=== PATIENT | male | born 1995 | race Caucasian/White ===

== ENCOUNTER 2017-02-21 18:39 | Emergency (ER) | payer OTHER ==
--- NOTE | 2017-02-21 18:42 | EDPHY ---
H & P HPI/ROS: HPI CHIEF COMPLAINT: Dysuria x 4 days. HISTORY OF PRESENT ILLNESS: This patient very pleasant 21-year-old male, otherwise healthy does have significant past medical history for seizure disorders, he presents emergency room with 4 days of dysuria. He states that 5 days ago he had anal intercourse unprotected with a female partner. The next day he developed dysuria. No drainage or discharge. No testicular pain. No fever. Denies vomiting nausea or back pain. Main complaint is dysuria x4 days. He denies STI exposure. Past Medical History: Denies significant medical history except for seizures Past Surgical History: No recent surgery Social History: Denies daily use of drugs alcohol tobacco products. Works for [employer]. Family History: Noncontributory. ROS REVIEW OF SYSTEMS: A comprehensive 10 point review of systems is otherwise negative aside from elements mentioned in the history of present illness. Exam Constitutional appears well nontoxic triage nursing summary reviewed, vital signs reviewed, awake/alert. Eyes normal conjunctivae and sclera, EOMI, PERRLA. HENT normal inspection, atraumatic, moist mucus membranes, no epistaxis, neck supple/ no meningismus, no raccoon eyes. Respiratory clear to auscultation bilaterally, normal breath sounds, no respiratory distress, no wheezing. Cardiovascular rate normal, regular rhythm, no murmur, no edema, distal pulses normal. Gastrointestinal soft, non-tender, no rebound, no guarding, normal bowel sounds, no distension, no pulsatile mass. Genitourinary no CVA tenderness. Musculoskeletal no midline vertebral tenderness, full range of motion, no calf swelling, no tenderness of extremities, no meningismus, good pulses, neurovascularly intact. Skin pink, warm, & dry, no rash, skin atraumatic. Neurologic awake, alert and oriented x 3, AAOx3, moves all 4 extremities equally, motor intact, sensory intact, CN II-XII intact, normal cerebellar, normal vision, normal speech. Psychiatric normal mood/affect. Heme/Lymph/Immune no lymphadenopathy. Differential Diagnosis: Includes but is not limited to in a particular order UTI, cystitis, STI, urethritis, pyelonephritis. Medical Decision Making: Plan for this patient check dirty catch, evaluate for urinary tract infection. Will obtain dirty sample for STI testing. Additionally will send for formal UA. If patient's UA indicates UTI will start on Keflex and peridium. Additionally I discussed impaired treatment of STI but the patient would like to wait for his test results. He thinks is unlikely he has an STI. Re-evaluation: 1951: UA has resulted and is clean. However given the patient's dysuria symptoms I will treat and send urine culture. Keflex prescription and pyridium. Additionally a dirty catch was sent for GC. Patient understands this is pending and will take 24-48 hours to result. He is to call in 48 hr to find out result. Additionally if it is positive we will call him he understands this. I had a lengthy discussion with this patient about his clean urinalysis but given his dysuria and etiology of his symptoms starting I will elect to treat him with antibiotics and peridium. He understands return emergency room if he has worsening symptoms questions or concerns. Source: Patient Constitutional: Initial Vital Signs Heart Rate 59 L 02/21/17 18:52 Respiratory Rate 16 02/21/17 18:52 Blood Pressure 124/65 H 02/21/17 18:52 O2 Sat (%) 95 02/21/17 18:52 O2 Delivery Mode Room Air Allergies/Adverse Reactions: No Known Allergies Allergy (Unverified 02/21/17 18:50) Home Medications: Medication Instructions Recorded Cephalexin [Keflex] 500 mg PO Q6H #28 cap 02/21/17 Keppra 02/21/17 Phenazopyridine HCl [Pyridium] 200 mg PO TID #15 tab 02/21/17 VIMPAT 02/21/17 Medical Decision Making - Data Points Laboratory Results: 02/21/17 02/21/17 19:00 19:00 Urine Color YELLOW Urine Appearance CLEAR Urine pH 6.0 (5.0-7.5) Ur Specific [place] <= 1.005 (1.002-1.030) Urine Protein NEGATIVE (NEGATIVE) Urine Ketones NEGATIVE (NEGATIVE) Urine Blood NEGATIVE (NEGATIVE) Urine Nitrate NEGATIVE (NEGATIVE) Urine Bilirubin NEGATIVE (NEGATIVE) Urine Urobilinogen 0.2 EU EU (0.2-1.0) Ur Leukocyte Esterase NEGATIVE (NEGATIVE) Urine Glucose NEGATIVE (NEGATIVE) N.gonorrhoeae RNA (TMA) Pending Departure - Departure Disposition: Home, Routine, Self-Care Clinical Impression: Urinary tract infection Qualifiers: Urinary tract infection type: acute cystitis Hematuria presence: with hematuria Qualified Code(s): N30.01 - Acute cystitis with hematuria Condition: Good Instructions: Urinary Tract Infection in Men (ED) Additional Instructions: 1. Make sure to drink lots of fluids stay well-hydrated. 2. Take antibiotics as prescribed. 3. Call in 48 hrs for test results. 4. Return to the emergency room if you have worsening symptoms this includes worsening pain, vomiting, fever, back pain or questions or concerns. Referrals: NONE *PRIMARY CARE P,. [Primary Care Provider] - As per Instructions Prescriptions: Cephalexin [Keflex] 500 mg PO Q6H #28 cap Phenazopyridine HCl [Pyridium] 200 mg PO TID #15 tab
[2017-02-21 18:55] VITALS: O2SAT 95
[2017-02-21 19:04] VITALS: TEMP 97.7
[2017-02-21 19:43] LABS: COLOR YELLOW; LEUKOCYTE ESTERASE,URINE NEGATIVE (NEGATIVE); NITRITE,URINE NEGATIVE (NEGATIVE)
[2017-02-21] MEDS ORDERED: CEPHALEXIN 500 MG CAP PO ONE (19:51)
[2017-02-21] MEDS ORDERED: PHENAZOPYRIDINE HCL 200 MG TAB PO ONE (19:51)
[2017-02-21] MEDS ORDERED: CEPHALEXIN 500MG PREPACK#4 BTL TAKEHOME ONE (19:51)
[2017-02-21 20:09] VITALS: BP 128/64; PULSE 62; RESP 18
[2017-02-25 11:49] LABS: CHLAMYDIA AMPLIFICATION GENPRB NEGATIVE (NEGATIVE)
== END 2017-02-21 20:09 | disposition home or self-care (01) ==
LOC: CED 18:39
DX: N30.01 Acute cystitis with hematuria (principal); B96.89 Other specified bacterial agents as the cause of diseases classified elsewhere
CPT/HCPCS: 81003-PO

== ENCOUNTER 2017-02-25 11:07 | Emergency (ER) | payer OTHER ==
[2017-02-25 11:17] VITALS: RESP 18; TEMP 97.7
--- NOTE | 2017-02-25 11:48 | EDPHY ---
H & P Stated Complaint: GENITAL LESION STARTED THIS MORNING, REQUESTING STD TESTING Time Seen by Provider: 02/25/17 11:32 HPI/ROS: CHIEF COMPLAINT: Dysuria, lesion HISTORY OF PRESENT ILLNESS: The patient is a 21-year-old man who 2 weeks ago had the vaginal and rectal intercourse with a new partner. Then he began developing dysuria a few days later. He was seen here on the and had a negative urinalysis and urine culture. He was started on Keflex which she is still taking. He has not had any improvement in his dysuria. He has had some improvement with Pyridium. No pain with defecation. No bleeding. No fevers. GC Chlamydia are still pending. This morning he also noticed a very small lesion on the glans of his penis that was not there last night. No discharge from the lesion or from his urethra. No testicular pain or swelling. No the enlarged lymph nodes. REVIEW OF SYSTEMS: Constitutional: denies: chills, fever, recent illness, recent injury EENTM: denies: blurred vision, double vision, nose congestion Respiratory: denies: cough, shortness of breath Cardiac: denies: chest pain, irregular heart rate, lightheadedness, palpitations Gastrointestinal/Abdominal: denies: abdominal pain, diarrhea, nausea, vomiting, blood streaked stools Genitourinary: See HPI Musculoskeletal: denies: joint pain, muscle pain Skin: See HPI Neurological: denies: headache, numbness, paresthesia, tingling, dizziness, weakness Hematologic/Lymphatic: denies: blood clots, easy bleeding, easy bruising Immunologic/allergic: denies: HIV/AIDS, transplant EXAM: GENERAL: Well-appearing, well-nourished and in no acute distress. HEAD: Atraumatic, normocephalic. EYES: Pupils equal round and reactive to light, extraocular movements intact, sclera anicteric, conjunctiva are normal. ENT: TMs normal, nares patent, oropharynx clear without exudates. Moist mucous membranes. NECK: Normal range of motion, supple without lymphadenopathy or JVD. LUNGS: Breath sounds clear to auscultation bilaterally and equal. No wheezes rales or rhonchi. HEART: Regular rate and rhythm without murmurs, rubs or gallops. ABDOMEN: Soft, nontender, normoactive bowel sounds. No guarding, no rebound. No masses appreciated. : No discharge. No erythema. Very small punctate lesion to the glans of the penis with central ulceration. No vesicles. No chancre. Palpable but nontender lymph nodes BACK: No CVA tenderness, no spinal tenderness, step-offs or deformities EXTREMITIES: Normal range of motion, no pitting or edema. No clubbing or cyanosis. NEUROLOGICAL: Cranial nerves II through XII grossly intact. Normal speech, normal gait. 5/5 strength, normal movement in all extremities, normal sensation PSYCH: Normal mood, normal affect. SKIN: Warm, dry, normal turgor, no visible rashes or lesions. Source: Patient Exam Limitations: No limitations - Personal History Tetanus Vaccine Date: LESS THAN 10 YEARS - Medical/Surgical History Hx Asthma: No Hx Chronic Respiratory Disease: No Hx Diabetes: No Hx Cardiac Disease: No Hx Renal Disease: No Hx Cirrhosis: No Hx Alcoholism: No Hx HIV/AIDS: No Hx Splenectomy or Spleen Trauma: No Other PMH: EPILEPSY - Family History Significant Family History: No pertinent family hx - Social History Smoking Status: Never smoked Alcohol Use: Sober Drug Use: None Constitutional: Initial Vital Signs Temperature (C) 36.5 C 02/25/17 11:16 Heart Rate 62 02/25/17 11:16 Respiratory Rate 18 02/25/17 11:16 Blood Pressure 128/59 H 02/25/17 11:16 O2 Sat (%) 98 02/25/17 11:16 O2 Delivery Mode Room Air Allergies/Adverse Reactions: No Known Allergies Allergy (Unverified 02/25/17 11:15) Home Medications: Medication Instructions Recorded Cephalexin [Keflex] 500 mg PO Q6H #28 cap 02/21/17 Keppra 02/21/17 Phenazopyridine HCl [Pyridium] 200 mg PO TID #15 tab 02/21/17 VIMPAT 02/21/17 Acyclovir [Zovirax 200 mg (*)] 200 mg PO 5XD #50 cap 02/25/17 Medical Decision Making ED Course/Re-evaluation: 12:10 p.m. I discussed the patient with Dr. Lazaro Flores from Infectious Disease. We agreed that this is most likely herpes infection that simply causes burning sensation while he urinates because of the nature of the disease. With no white cells in his urine and no discharge it is very unlikely to be urethritis. He recommends starting acyclovir only and holding off on antibiotics until further results return. I will have him follow up with the ID clinic. The patient understands and agrees with this plan. We will send off RPR as well as repeat the other test. Differential Diagnosis: Partial list of the Differential diagnosis considered include but were not limited to; genital herpes, syphilis, urethra itis and although unlikely based on the history and physical exam, I also considered chancroid, burn, GC, Chlamydia. - Data Points Laboratory Results: 02/25/17 02/25/17 02/25/17 12:25 12:25 12:15 Urine Color ORANGE Urine Appearance CLEAR Urine pH 5.0 (5.0-7.5) Ur Specific [place] 1.015 (1.002-1.030) Urine Protein NEGATIVE (NEGATIVE) Urine Ketones TRACE H (NEGATIVE) Urine Blood NEGATIVE (NEGATIVE) Urine Nitrate POSITIVE H (NEGATIVE) Urine Bilirubin NEGATIVE (NEGATIVE) Urine Urobilinogen 0.2 EU EU (0.2-1.0) Ur Leukocyte Esterase NEGATIVE (NEGATIVE) Urine RBC 0-1 /hpf /hpf (0-3) Urine WBC 1-3 /hpf /hpf (0-3) Ur Epithelial Cells NONE SEEN /lpf /lpf (NONE-1+) Urine Bacteria TRACE /hpf H /hpf (NONE SEEN) Urine Mucus 2+ /lpf H /lpf (NONE-1+) Urine Glucose NEGATIVE (NEGATIVE) RPR Pending C.trachomatis RNA (TMA) Pending HSV Source Description HSV I DNA PCR HSV II DNA PCR N.gonorrhoeae RNA (TMA) Pending 02/25/17 11:40 Urine Color Urine Appearance Urine pH Ur Specific [place] Urine Protein Urine Ketones Urine Blood Urine Nitrate Urine Bilirubin Urine Urobilinogen Ur Leukocyte Esterase Urine RBC Urine WBC Ur Epithelial Cells Urine Bacteria Urine Mucus Urine Glucose RPR C.trachomatis RNA (TMA) HSV Source Description Pending HSV I DNA PCR Pending HSV II DNA PCR Pending N.gonorrhoeae RNA (TMA) Departure - Departure Disposition: Home, Routine, Self-Care Clinical Impression: Herpes genitalia Qualifiers: Herpes simplex infection site: penis Qualified Code(s): A60.01 - Herpesviral infection of penis Condition: Fair Instructions: Genital Herpes Simplex (ED) Referrals: NONE *PRIMARY CARE P,. [Primary Care Provider] - As per Instructions Lazaro Flores MD [Medical Doctor] - 5-7 days, call for appt. Stand Alone Forms: Work Excuse Prescriptions: Acyclovir [Zovirax 200 mg (*)] 200 mg PO 5XD #50 cap
[2017-02-25 12:29] LABS: COLOR ORANGE; LEUKOCYTE ESTERASE,URINE NEGATIVE (NEGATIVE); NITRITE,URINE POSITIVE (NEGATIVE)
[2017-02-25 12:45] LABS: RBC,URINE 0-1 /hpf (0-3)
[2017-02-25 12:46] LABS: MUCUS 2+ /lpf (NONE-1+)
[2017-02-25 12:47] VITALS: BP 111/71; PULSE 70; O2SAT 95
[2017-02-25 12:48] LABS: BACTERIA TRACE /hpf (NONE SEEN)
[2017-02-26 13:21] LABS: CHLAMYDIA AMPLIFICATION GENPRB NEGATIVE (NEGATIVE)
[2017-02-27 14:03] LABS: SPECIMEN SOURCE PENIS
== END 2017-02-25 12:46 | disposition home or self-care (01) ==
LOC: CED 11:07
DX: A60.01 Herpesviral infection of penis (principal)
CPT/HCPCS: 81003-PO; 81015-PO; 87529-90